=== PATIENT | female | born 1940 | race Caucasian/White ===

== ENCOUNTER 2019-02-21 08:12 | Day surgery (SDC) | payer MEDICARE, BC ==
[2019-02-21] MEDS ORDERED: PROPOFOL 200 MG/20 ML BOTTLE IV ONE (08:13)
[2019-02-21] MEDS ORDERED: SUCCINYLCHOLINE CHLORIDE 200 MG/10 ML VIAL IV ONE (08:13)
[2019-02-21] MEDS ORDERED: ESMOLOL HCL 100 MG/10 ML VIAL IV ONE (08:13)
[2019-02-21] MEDS ORDERED: GLYCOPYRROLATE 0.2 MG/ML VIAL IJ ONE (08:13)
[2019-02-21] MEDS ORDERED: NEOSTIGMINE METHYLSULFATE 10 MG/10 ML VIAL IM ONE (08:13)
[2019-02-21] MEDS ORDERED: MORPHINE SULFATE PF 10 MG/10 ML AMPUL IV ONE (09:47)
[2019-02-21] MEDS ORDERED: BUPIVACAINE 0.25% 30 ML VIAL ONE (09:47)
[2019-02-21] MEDS ORDERED: FENTANYL CITRATE 100 MCG/2 ML AMPUL ONE (11:05)
[2019-02-21] MEDS ORDERED: TRAMADOL HCL 50 MG TABLET ONE (11:36)
== END 2019-02-21 12:40 | disposition home or self-care (01) ==
LOC: DS 08:12
PROVIDERS: ATTEND Orthopaedic Surgery
DX: S83.242A Other tear of medial meniscus, current injury, left knee, initial encounter (principal); S83.282A Other tear of lateral meniscus, current injury, left knee, initial encounter; M94.262 Chondromalacia, left knee; M65.88 Other synovitis and tenosynovitis, other site; I10 Essential (primary) hypertension; E03.9 Hypothyroidism, unspecified; E78.00 Pure hypercholesterolemia, unspecified; M19.90 Unspecified osteoarthritis, unspecified site; J45.909 Unspecified asthma, uncomplicated; F15.90 Other stimulant use, unspecified, uncomplicated; Z79.899 Other long term (current) drug therapy; Z98.890 Other specified postprocedural states; X58.XXXA Exposure to other specified factors, initial encounter; Y93.89 Activity, other specified; Y92.89 Other specified places as the place of occurrence of the external cause; Y99.8 Other external cause status
CPT/HCPCS: 29880; J0330; J2274; J2710; J3010; J3490 ×3; J7120; A4663